=== PATIENT | male | born 1985 | race Hispanic/Latino ===

== ENCOUNTER 2017-10-15 21:07 | Emergency (ER) | payer SELFPAY ==
[2017-10-15] MEDS ORDERED: DiphenhydrAMINE 50 mg/ml Inj IM STA (21:26)
--- NOTE | 2017-10-15 21:27 | ED PDOC ---
Arrival/HPI - General Time Seen by Provider: 10/15/17 21:17 Historian: Patient - History of Present Illness Narrative History of Present Illness (Text): 10/15/17 21:24 A 32 year old male, with no known past medical history, presents to the emergency department with a complaint of a rash developing throughout his arms , chest, and neck since yesterday. The patient notes that he started noticing the rash on his arms and it began spreading to his chest and neck. He states that he has not changed his daily routine or eaten anything new. The patient denies any fever, chills, chest pain, shortness of breath, dyspnea on exertion, abdominal pain, nausea, vomiting, diarrhea, urinary/bowel changes, back pain, neck pain, headache, dizziness, or any other complaints. PMD: None Time/Duration: Other (Yesterday ) Symptom Onset: Gradual Symptom Course: Worsening Activities at Onset: Rest, Light Context: Home Past Medical History - Provider Review Nursing Documentation Reviewed: Yes - Infectious Disease Hx of Infectious Diseases: None - Tetanus Immunization Tetanus Immunization: Unknown - Past Medical History Past Medical History: No Previous - Cardiac Hx Cardiac Disorders: No - Pulmonary Hx Respiratory Disorders: No - Neurological Hx Neurological Disorder: No - HEENT Hx HEENT Disorder: No - Renal Hx Renal Disorder: No - Endocrine/Metabolic Hx Endocrine Disorders: No - Hematological/Oncological Hx Leukemia: Yes (broviac/chemo) - Integumentary Hx Dermatological Disorder: No - Musculoskeletal/Rheumatological Hx Musculoskeletal Disorders: No - Gastrointestinal Hx Gastrointestinal Disorders: No - Genitourinary/Gynecological Hx Genitourinary Disorders: No - Psychiatric Hx Psychophysiologic Disorder: No Hx Substance Use: Yes (marijuana last use today) - Past Surgical History Past Surgical History: No Previous - Surgical History Hx Tonsillectomy: Yes - Anesthesia Hx Anesthesia: Yes Hx Anesthesia Reactions: No Hx Malignant Hyperthermia: No - Suicidal Assessment Feels Threatened In Home Enviroment: No Family/Social History - Physician Review Nursing Documentation Reviewed: Yes Family/Social History: No Known Family HX Smoking Status: Current Some Days Smoker Hx Alcohol Use: Yes Hx Substance Use: Yes (marijuana last use today) Substance used: H/O Marijuana use Allergies/Home Meds Allergies/Adverse Reactions: Allergies No Known Allergies Allergy (Verified 10/15/17 21:28) Review of Systems - Physician Review All systems were reviewed & negative as marked: Yes - Review of Systems Constitutional: absent: Fevers, Night Sweats Respiratory: absent: SOB Cardiovascular: absent: Chest Pain, SEPULVEDA Gastrointestinal: absent: Abdominal Pain, Stool Changes, Diarrhea, Nausea, Vomiting Genitourinary Male: absent: Urinary Output Changes Musculoskeletal: absent: Back Pain, Neck Pain Skin: Rash (Rash on Neck, Arms, Chest) Neurological: absent: Headache, Dizziness Physical Exam Vital Signs Reviewed: Yes Vital Signs Temp Pulse Resp BP Pulse Ox 10/15/17 21:28 98.4 F 83 18 141/84 95 Temperature: Afebrile Blood Pressure: Normal Pulse: Regular Respiratory Rate: Normal Appearance: Positive for: Well-Appearing, Non-Toxic, Comfortable Pain Distress: None Mental Status: Positive for: Alert and Oriented X 3 - Systems Exam Head: Present: Atraumatic, Normocephalic Pupils: Present: PERRL Extroacular Muscles: Present: EOMI Conjunctiva: Present: Normal Mouth: Present: Moist Mucous Membranes Neck: Present: Normal Range of Motion Respiratory/Chest: Present: Clear to Auscultation, Good Air Exchange. No: Respiratory Distress, Accessory Muscle Use Cardiovascular: Present: Regular Rate and Rhythm, Normal S1, S2. No: Murmurs Abdomen: No: Tenderness, Distention, Peritoneal Signs Back: Present: Normal Inspection Upper Extremity: Present: Normal Inspection. No: Cyanosis, Edema Lower Extremity: Present: Normal Inspection. No: Edema Neurological: Present: GCS=15, CN II-XII Intact, Speech Normal Skin: Present: Warm, Dry, Rashes (Scattered areas of urticaria on chest, arms, and neck.), Normal Color Psychiatric: Present: Alert, Oriented x 3, Normal Insight, Normal Concentration Medical Decision Making ED Course and Treatment: 10/15/17 21:28 Impression: A 32 year old male presents to the emergency department complaining of a rash to his arms, chest, and neck that began yesterday morning. Plan: -- Benadryl and predniSONE -- Reassess and disposition Progress Notes: 10/15/17 21:59: Patient became nauseous after he was given Benadryl and predniSONE. Zofran was ordered. 10/15/17 23:38 On re-evaluation, patient with symptomatic improvement following treatment in emergency department. Patient in agreement with plan to be discharged home. Patient is stable for discharge. Patient was instructed to follow up with physician or return if symptoms worsen or new concerning symptoms arise. - Medication Orders Current Medication Orders: Discontinued Medications Diphenhydramine HCl (Benadryl) 50 mg IM ONCE STA Stop: 10/15/17 21:27 Last Admin: 10/15/17 21:48 Dose: 50 mg IM Administration Charges Document 10/15/17 21:48 CNR (Rec: 10/15/17 21:48 CNR [id number]) Injection Site MAR Injection Site Right Deltoid Charges for Administration # of IM Administrations 1 Ondansetron HCl (Zofran Odt) 4 mg PO STAT STA Stop: 10/15/17 21:58 Last Admin: 10/15/17 22:05 Dose: 4 mg Prednisone (Prednisone Tab) 60 mg PO ONCE STA Stop: 10/15/17 21:27 Last Admin: 10/15/17 21:48 Dose: 60 mg - Scribe Statement The provider has reviewed the documentation as recorded by the Yasmeenibange Marin Provider Scribe Attestation: All medical record entries made by the Scribe were at my direction and personally dictated by me. I have reviewed the chart and agree that the record accurately reflects my personal performance of the history, physical exam, medical decision making, and the department course for this patient. I have also personally directed, reviewed, and agree with the discharge instructions and disposition. Disposition/Present on Arrival - Present on Arrival Any Indicators Present on Arrival: No History of DVT/PE: No History of Uncontrolled Diabetes: No Urinary Catheter: No History Surgical Site Infection Following: None - Disposition Have Diagnosis and Disposition been Completed?: Yes Diagnosis: Allergic reaction, Urticaria Disposition: HOME/ ROUTINE Disposition Time: 23:35 Patient Plan: Discharge Patient Problems: Current Active Problems Problem Status Onset Allergic reaction Acute Urticaria Acute Condition: GOOD Discharge Instructions (ExitCare): Hives (DC) Additional Instructions: Take meds as prescribed/follow up with your doctor/press setter as needed Prescriptions: DiphenhydrAMINE [Benadryl] 50 mg PO Q6 PRN #24 cap PRN Reason: Itching / Pruritus predniSONE [Prednisone] 40 mg PO DAILY #10 tab Referrals: Alma Sesay MD [Staff Provider] - Follow up with primary
[2017-10-15 21:36] VITALS: RESP 18; TEMP 98.4; BMI 27.1
[2017-10-15 23:52] VITALS: BP 132/86; PULSE 58; O2SAT 97
== END 2017-10-15 23:51 | disposition home or self-care (01) ==
LOC: ED 21:07
DX: L50.9 Urticaria, unspecified (principal); T78.40XA Allergy, unspecified, initial encounter
CPT/HCPCS: 96372; 99282; J1200